=== PATIENT | female | born 1950 | race Caucasian/White ===

== ENCOUNTER → 2018-09-16 | Outpatient (CLI) | payer MEDICARE, BC ==
[~2018-09-16] MED LIST: ACET500 PO; ASPI325; ASPI325 PO; ASPI325EC PO; CLOP75; CODACE30 PO; Cleocin HCl300 MG PO; EZET10; GLYB5; HYDACE10B PO; HYDR1TAB94 PO; Humalog100 UNIT/1 SC; IBUP600 PO; INSDET100 SQ; INSLIS75I SC; INSUASPI SC; INVOKANA300 MG; ISOMON30; LISI20 PO; LOSA25; METF500 PO; METO50; METO50 PO; OMEP20ER PO; OXYACE5T PO; OXYC5 PO; Pepcid20 MG PO; SIMV10 PO; SIMV20 PO; ZESTORETIC 20-121 EA PO; ZOLP10 PO; [UNRECOGNIZED DRUG - OTHER] SC
[2018-09-16 15:18] LABS: Adenovirus F 40/41 Not Detected (NOT DETECT); Astrovirus Not Detected (NOT DETECT); Campylobacter Sp Not Detected (NOT DETECT); Cryptosporidium Not Detected (NOT DETECT); Cyclospora Cayetanensis Not Detected (NOT DETECT); E. Coli O157 Not Detected (NOT DETECT); Entamoeba Histolytica Not Detected (NOT DETECT); Enteroaggregative E. coli-EAEC Not Detected (NOT DETECT); Enteropathogenic E. coli-EPEC Not Detected (NOT DETECT); Enterotoxigenic E. coli-ETEC Not Detected (NOT DETECT); Giardia Lamblia Not Detected (NOT DETECT); Norovirus GI/GII Not Detected (NOT DETECT); Plesiomonas Shigelloides Not Detected (NOT DETECT); Rotavirus A Not Detected (NOT DETECT); Salmonella Sp Not Detected (NOT DETECT); Sapovirus Not Detected (NOT DETECT); Shiga Toxin-prod E. coli-STEC Not Detected (NOT DETECT); Shigella/Enteroin E. coli-EIEC Not Detected (NOT DETECT); Vibrio Cholerae Not Detected (NOT DETECT); Vibrio Sp Not Detected (NOT DETECT); Yersinia Enterocolitica Not Detected (NOT DETECT)
== END ==
LOC: LAB SHORT 13:24 → LAB EV 13:24
PROVIDERS: Physician Assistant
DX: R10.9 Unspecified abdominal pain (principal)
CPT/HCPCS: 87324; 87507

== ENCOUNTER 2019-09-18 08:47 | Day surgery (SDC) | payer MEDICARE, BC ==
[~2019-09-18] VITALS: Ht 167.6 cm; Wt 91.9 kg
[~2019-09-18 08:47] MED LIST changes: +ASPIR 8181 MG PO; +Humalog Mi100 UNIT/5 SC; +INSDET100 SC; +INVOKANA300 MG PO; +Lopressor 50 mg50 MG PO; +Metformin HCl1000 MG PO; +Nitroglycerin0.4 MG SL; +SIMV40 PO
--- NOTE | 2019-09-18 11:11 | NUR ---
09/18/19 Hellen Guillory PT. VERBALIZES HAVING SOME LLQ DISCOMFORT. PER DR. HONEYCUTT TELLING PT. THAT IT IS PROBABLY SOME AIR IN THE COLON THAT EVENTUALLY WILL BE ABSORB OR JUST NEEDS TO BE PASSED. PT. VERBALIZES LLQ DISCOMFORT TOLERABLE.
== END 2019-09-18 11:00 | disposition home or self-care (01) ==
LOC: ORSCSDS 08:47
PROVIDERS: Surgery
PROC: 0DJD8ZZ Inspection of Lower Intestinal Tract, Via Natural or Artificial Opening Endoscopic (ICD-10-PCS; principal; 2019-09-18 10:00)
DX: Z12.11 Encounter for screening for malignant neoplasm of colon (principal); Z86.010 Personal history of colon polyps; Z87.19 Personal history of other diseases of the digestive system; E11.9 Type 2 diabetes mellitus without complications; I10 Essential (primary) hypertension; G47.33 Obstructive sleep apnea (adult) (pediatric); E78.5 Hyperlipidemia, unspecified; I25.10 Atherosclerotic heart disease of native coronary artery without angina pectoris; E66.9 Obesity, unspecified; Z87.891 Personal history of nicotine dependence; Z68.32 Body mass index [BMI] 32.0-32.9, adult; Z79.82 Long term (current) use of aspirin; Z79.84 Long term (current) use of oral hypoglycemic drugs; Z79.4 Long term (current) use of insulin; Z79.899 Other long term (current) drug therapy
CPT/HCPCS: 82947; J2405; J2704; J7120

== ENCOUNTER → 2020-04-03 | Outpatient (CLI) | payer MEDICARE, BC ==
[2020-04-04 02:03] LABS: Adenovirus F 40/41 Not Detected (NOT DETECT); Astrovirus Not Detected (NOT DETECT); Campylobacter Sp Not Detected (NOT DETECT); Cryptosporidium Not Detected (NOT DETECT); Cyclospora Cayetanensis Not Detected (NOT DETECT); E. Coli O157 Not Detected (NOT DETECT); Entamoeba Histolytica Not Detected (NOT DETECT); Enteroaggregative E. coli-EAEC Not Detected (NOT DETECT); Enteropathogenic E. coli-EPEC Not Detected (NOT DETECT); Enterotoxigenic E. coli-ETEC Not Detected (NOT DETECT); Giardia Lamblia Not Detected (NOT DETECT); Norovirus GI/GII Not Detected (NOT DETECT); Plesiomonas Shigelloides Not Detected (NOT DETECT); Rotavirus A Not Detected (NOT DETECT); Salmonella Sp Not Detected (NOT DETECT); Sapovirus Not Detected (NOT DETECT); Shiga Toxin-prod E. coli-STEC Not Detected (NOT DETECT); Shigella/Enteroin E. coli-EIEC Not Detected (NOT DETECT); Vibrio Cholerae Not Detected (NOT DETECT); Vibrio Sp Not Detected (NOT DETECT); Yersinia Enterocolitica Not Detected (NOT DETECT)
== END | disposition home or self-care (01) ==
LOC: LAB SHORT 18:04 → LAB 18:04
PROVIDERS: Hospitalist
DX: R19.7 Diarrhea, unspecified (principal)
CPT/HCPCS: 0097U; 87324

== ENCOUNTER → 2020-04-16 | Outpatient (CLI) | payer MEDICARE, BC | END | disposition home or self-care (01) | LOC: LAB SHORT 10:45 → PLD 10:45 | DX: D04.39 Carcinoma in situ of skin of other parts of face (principal); C44.622 Squamous cell carcinoma of skin of right upper limb, including shoulder; L57.0 Actinic keratosis | CPT/HCPCS: 88305 ==

== ENCOUNTER → 2020-05-05 | Outpatient (CLI) | payer MEDICARE, BC | END | disposition home or self-care (01) | LOC: LAB SHORT 14:50 → PLD 14:50 | DX: C44.622 Squamous cell carcinoma of skin of right upper limb, including shoulder (principal); L81.4 Other melanin hyperpigmentation | CPT/HCPCS: 88305 ==

== ENCOUNTER 2020-05-26 18:35 | Emergency (ER) | payer MEDICARE, BC ==
[~2020-05-26] VITALS: Ht 167.6 cm; Wt 97.5 kg
[2020-05-26 19:45] LABS: BASOPHILS ABSOLUTE AUTO 0.03 K/mm3 (0.00-0.23); BASOPHILS PERCENT AUTO 0 % (0-2); EOSINOPHILS ABSOLUTE AUTO 0.01 K/mm3 (0.00-0.68); EOSINOPHILS PERCENT AUTO 0 % (0-6); Hemoglobin 16.4 g/dL (11.5-16.0); IMMATURE GRAN ABSOLUTE AUTO 0.07 K/mm3 (0.00-0.10); IMMATURE GRAN PERCENT AUTO 1 % (0-1); LYMPHOCYTES ABSOLUTE AUTO 1.26 K/mm3 (0.84-5.20); LYMPHOCYTES PERCENT AUTO 15 % (21-46); MONOCYTES PERCENT AUTO 2 % (4-13); Mean Corpuscular HGB 31.2 pg (26.0-34.0); Mean Corpuscular HGB Conc 34.9 g/dL (31.5-36.5); Mean Corpuscular Volume 90 fL (80-100); Mean Platelet Volume 10.1 fL (9.1-12.4); NEUTROPHILS ABSOLUTE AUTO 7.02 K/mm3 (1.96-9.15); NEUTROPHILS PERCENT AUTO 82 % (41-73); Platelet Count 249 K/mm3 (150-400); RDW Coefficient Variation 11.9 % (11.7-14.2); RDW Standard Deviation 39.2 fL (35.1-46.3); Red Blood Cell Count 5.25 M/mm3 (3.80-5.20); White Blood Cell Count 8.59 K/mm3 (4.00-11.30)
[2020-05-26 20:06] LABS: Alanine Aminotransfer (ALT/SGP 55 U/L (12-78); Albumin, Blood 4.4 g/dL (3.4-5.0); Alk Phos 67 U/L (50-136); Anion Gap 11 mmol/L (6-16); Aspartate Aminotrans (AST/SGOT 29 U/L (12-37); Bilirubin, Total 1.2 mg/dL (0.1-1.0); Blood Urea Nitrogen 22 mg/dL (8-24); Bun/Creatinine Ratio 40.4 (12.0-20.0); CO2, Blood 23 mmol/L (21-32); Chloride, Blood 103 mmol/L (98-108); Creatinine, Blood 0.55 mg/dL (0.40-1.00); Globulin, Blood 4.2 g/dL (2.2-4.0); Glomerular Filtration Rate >60 (60-); Glucose, Blood 226 mg/dL (70-99); Potassium, Blood 4.1 mmol/L (3.5-5.5); Sodium, Blood 137 mmol/L (136-145); Total Protein, Blood 8.6 g/dL (6.4-8.2)
== END 2020-05-26 23:58 | disposition home or self-care (01) ==
LOC: ER 18:35
PROVIDERS: Physician Assistant
DX: R51.9 Headache, unspecified (principal); R11.2 Nausea with vomiting, unspecified; H53.71 Glare sensitivity; E11.9 Type 2 diabetes mellitus without complications; I25.10 Atherosclerotic heart disease of native coronary artery without angina pectoris; I10 Essential (primary) hypertension; E78.5 Hyperlipidemia, unspecified; Z87.891 Personal history of nicotine dependence; Z79.4 Long term (current) use of insulin; Z79.82 Long term (current) use of aspirin; Z79.899 Other long term (current) drug therapy; Z91.030 Bee allergy status; Z88.2 Allergy status to sulfonamides; Z88.8 Allergy status to other drugs, medicaments and biological substances
CPT/HCPCS: 36415; 70450; 70496; 70498; 80053; 85025; 96374-59; 96375-59; 99284-25; J1100; J1170; J1200; J2405; J2550; J7030; Q9967

== ENCOUNTER → 2020-10-15 | Outpatient (CLI) | payer MEDICARE, BC | END | disposition home or self-care (01) | LOC: LAB SHORT 12:37 → PLD 12:37 | DX: D18.01 Hemangioma of skin and subcutaneous tissue (principal) | CPT/HCPCS: 88305 ==

== ENCOUNTER → 2020-12-31 | Outpatient (CLI) | payer MEDICARE, BC | END | disposition home or self-care (01) | LOC: LAB SHORT 13:12 → LAB 13:12 | DX: R53.83 Other fatigue (principal) | CPT/HCPCS: 84443 ==

== ENCOUNTER → 2021-04-26 | Outpatient (CLI) | payer MEDICARE, BC ==
[2021-04-26 11:46] LABS: Hematocrit 40.8 % (33.0-51.0); Hemoglobin 14.4 g/dL (11.5-16.0); Mean Corpuscular HGB 31.2 pg (26.0-34.0); Mean Corpuscular HGB Conc 35.3 g/dL (31.5-36.5); Mean Corpuscular Volume 88 fL (80-100); Mean Platelet Volume 9.9 fL (9.1-12.4); Platelet Count 204 K/mm3 (150-400); RDW Coefficient Variation 12.2 % (11.7-14.2); RDW Standard Deviation 39.5 fL (35.1-46.3); Red Blood Cell Count 4.62 M/mm3 (3.80-5.20); White Blood Cell Count 5.28 K/mm3 (4.00-11.30)
[2021-04-26 12:00] LABS: Albumin, Blood 3.5 g/dL (3.4-5.0); Albumin/Globulin Ratio 0.8 (0.8-1.8); Bilirubin, Total 0.5 mg/dL (0.1-1.0); Bun/Creatinine Ratio 24.8 (12.0-20.0); Calcium, Blood 8.9 mg/dL (8.5-10.1); Creatinine, Blood 1.25 mg/dL (0.40-1.00); Globulin, Blood 4.3 g/dL (2.2-4.0); Potassium, Blood 3.6 mmol/L (3.5-5.5); Total Protein, Blood 7.8 g/dL (6.4-8.2)
[2021-04-26 12:03] LABS: BAND PERCENT MAN 5 % (0-8); BASOPHILS ABSOLUTE MAN 0.05 K/mm3 (0.00-0.23); BASOPHILS PERCENT MAN 1 % (0-2); EOSINOPHILS ABSOLUTE MAN 0.15 K/mm3 (0.00-0.68); EOSINOPHILS PERCENT MAN 3 % (0-6); LYMPHOCYTES % ATYPICAL MANUAL 11 % (0-0); LYMPHOCYTES ABSOLUTE MAN 2.69 K/mm3 (0.84-5.20); LYMPHOCYTES PERCENT MAN 40 % (21-46); MONOCYTES ABSOLUTE MAN 0.52 K/mm3 (0.16-1.47); MONOCYTES PERCENT MAN 10 % (4-13); NEUTROPHILS ABSOLUTE MAN 1.84 K/mm3 (1.96-9.15); SEG NEUTROPHILS PERCENT MAN 30 % (41-73); TOTAL CELLS COUNTED 100
== END | disposition home or self-care (01) ==
LOC: LAB SHORT 11:42
PROVIDERS: General Practice
DX: U07.1 COVID-19 (principal)
CPT/HCPCS: 80053; 85025; 85379

== ENCOUNTER → 2021-07-07 | Outpatient (CLI) | payer MEDICARE, BC | END | disposition home or self-care (01) | LOC: LAB 11:11 → LAB SHORT 11:11 | DX: E11.65 Type 2 diabetes mellitus with hyperglycemia (principal) | CPT/HCPCS: 82043 ==

== ENCOUNTER 2021-08-18 07:01 | Day surgery (SDC) | payer MEDICARE, BC ==
[~2021-08-18] VITALS: Ht 162.6 cm; Wt 95.7 kg
[~2021-08-18 07:01] MED LIST changes: +HUMALOG MI100 UNIT/6 SC
[2021-08-18] MEDS ORDERED: NOVOLIN 70100 UNIT/4 SC ×2 (07:30→07:31)
--- NOTE | 2021-08-18 07:49 | NUR ---
History, Chart, Medications and Allergies reviewed before start of procedure. Lungs clear T/O to Auscultation. Patient confirms NPO status and agrees with scheduled surgery. Pre-Op teaching done. Pt verbalizes understanding. Patient States Post-Procedure ride home has been arranged.
--- NOTE | 2021-08-18 08:25 | NUR ---
08/18/21 0825 Misa Linares MONITOR INTACT WITH CONTINUOUS PULSE OXIMETRY AND INTERMITTENT BP.
--- NOTE | 2021-08-18 09:16 | NUR ---
Patient up to Ambulate independently. Gait steady. Discharge instructions reviewed with patient. Patient verbalizes understanding. Copy given to patient to take home. Discharged via wheelchair to private car for ride home.
== END 2021-08-18 23:14 | disposition home or self-care (01) ==
LOC: ORSCMMR 07:01 → ORD 08:00 → ORSCMMR 08:00
PROVIDERS: Internal Medicine Gastroenterology
PROC: 0DB98ZX Excision of Duodenum, Via Natural or Artificial Opening Endoscopic, Diagnostic (ICD-10-PCS; principal; 2021-08-18 08:00)
PROC: 0DB68ZX Excision of Stomach, Via Natural or Artificial Opening Endoscopic, Diagnostic (ICD-10-PCS; principal; 2021-08-18 08:00)
DX: R19.7 Diarrhea, unspecified (principal); R10.9 Unspecified abdominal pain; K44.9 Diaphragmatic hernia without obstruction or gangrene; E11.9 Type 2 diabetes mellitus without complications; I10 Essential (primary) hypertension; E78.5 Hyperlipidemia, unspecified; I25.10 Atherosclerotic heart disease of native coronary artery without angina pectoris; G47.33 Obstructive sleep apnea (adult) (pediatric); E66.9 Obesity, unspecified; Z68.36 Body mass index [BMI] 36.0-36.9, adult; Z79.82 Long term (current) use of aspirin; Z79.4 Long term (current) use of insulin; Z79.899 Other long term (current) drug therapy
CPT/HCPCS: 82947; 88305; 88342; J2001; J2704; J7120

== ENCOUNTER 2022-07-04 18:57 | Inpatient (IN) | payer MEDICARE, BC ==
[~2022-07-04] VITALS: Ht 170.2 cm; Wt 89.2 kg
[~2022-07-04 18:57] MED LIST changes: +NOVOLIN 70100 UNIT/4 SC
[2022-07-04 19:58] LABS: BASOPHILS ABSOLUTE AUTO 0.07 K/mm3 (0.00-0.23); BASOPHILS PERCENT AUTO 1 % (0-2); RDW Standard Deviation 39.1 fL (35.1-46.3)
[2022-07-04 20:06] LABS: EOSINOPHILS PERCENT AUTO 1 % (0-6); Hematocrit 43.5 % (33.0-51.0); Hemoglobin 15.7 g/dL (11.5-16.0); IMMATURE GRAN ABSOLUTE AUTO 0.06 K/mm3 (0.00-0.10); IMMATURE GRAN PERCENT AUTO 1 % (0-1); LYMPHOCYTES PERCENT AUTO 21 % (21-46); MONOCYTES ABSOLUTE AUTO 0.37 K/mm3 (0.16-1.47); MONOCYTES PERCENT AUTO 4 % (4-13); Mean Corpuscular HGB Conc 36.1 g/dL (31.5-36.5); Mean Corpuscular Volume 86 fL (80-100); NEUTROPHILS ABSOLUTE AUTO 6.47 K/mm3 (1.96-9.15); NEUTROPHILS PERCENT AUTO 72 % (41-73); RDW Coefficient Variation 12.4 % (11.7-14.2); Red Blood Cell Count 5.06 M/mm3 (3.80-5.20); White Blood Cell Count 8.97 K/mm3 (4.00-11.30)
[2022-07-04 20:07] LABS: Mean Platelet Volume 10.3 fL (9.1-12.4); Platelet Count 251 K/mm3 (150-400)
[2022-07-04 20:20] LABS: Albumin, Blood 4.2 g/dL (3.4-5.0); Albumin/Globulin Ratio 1.1 (0.8-1.8); Bilirubin, Total 1.1 mg/dL (0.1-1.0); Bun/Creatinine Ratio 34.3 (12.0-20.0); Calcium, Blood 9.9 mg/dL (8.5-10.1); Creatinine, Blood 0.58 mg/dL (0.40-1.00); Globulin, Blood 3.7 g/dL (2.2-4.0); Total Protein, Blood 7.9 g/dL (6.4-8.2)
[2022-07-04 20:40] LABS: Source, Urine Clean Catch
[2022-07-04 20:41] LABS: Influenza A, PCR NEGATIVE (NEGATIVE); Influenza B, PCR NEGATIVE (NEGATIVE); Resp Syncytial Virus, PCR NEGATIVE (NEGATIVE); SARS-Cov-2 (COVID-19) PCR, MMC NEGATIVE (NEGATIVE)
[2022-07-04 20:43] LABS: Bilirubin, Urine Neg (Neg); Blood, Urine Neg (Neg); Glucose Qualitative, Urine 4+ (Neg); Ketones, Urine 3+ (Neg); Leukocyte Esterase, Urine Neg (Neg); Nitrite, Urine Pos (Neg); Protein, Urine 2+ (Neg); Urobilinogen, Urine NORM (Normal)
[2022-07-04 20:48] LABS: Appearance, Urine Hazy (Clear); Color, Urine Pale Yellow (P-Yellow)
[2022-07-04 20:50] LABS: Bacteria Many /hpf; Renal Epithelial Rare /hpf (0-Rare); Squamous Epithelial Cells Mod /hpf (Few)
[2022-07-04 20:51] LABS: Transitional Epithelial Cells Rare /hpf (0-Rare); Yeast/Fungi Urine Rare /hpf
[2022-07-04 20:56] LABS: International Normalized Ratio 1.02; Prothrombin Time Results 10.7 Sec (9.7-11.5)
[2022-07-04 21:31] LABS: U Amphetamine Screen Not Detected; U Barbituate Screen Not Detected; U Benzodiazapine Screen Not Detected; U Buprenorphine Screen Not Detected; U Cannabinoids Screen Not Detected; U Cocaine Screen Not Detected; U Methadone Screen Not Detected; U Methamphetamine Screen Not Detected; U Opiates Screen Not Detected; U Oxycodone Screen Not Detected; U Phencyclidine Screen Not Detected; U Propoxyphene Screen Not Detected
[2022-07-05] MEDS ORDERED: Oxybutynin Chlor5 M1 PO (10:20)
[2022-07-05] MEDS ORDERED: PEPCID40 MG PO (10:20)
[2022-07-05 14:15] LABS: WBC Count, CSF 2 /mm3 (0-5)
[2022-07-05 14:16] LABS: Appearance, CSF Clear (Clear); Color, CSF No Color (No Color); RBC Count, CSF 18 /mm3 (0-0)
[2022-07-05 14:21] LABS: Appearance, CSF Clear (Clear); Color, CSF No Color (No Color); WBC Count, CSF 1 /mm3 (0-5)
[2022-07-05 14:22] LABS: RBC Count, CSF 28 /mm3 (0-0)
[2022-07-05 14:37] LABS: Glucose, CSF 161 mg/dL (40-70)
[2022-07-05 15:20] LABS: Cryptococcus Neoformans/Gattii Not Detected (NOT DETECT); Enterovirus Not Detected (NOT DETECT); Escherichia Coli K1 Not Detected (NOT DETECT); Haemophilus Influenza Not Detected (NOT DETECT); Herpes Simplex Virus 1 Not Detected (NOT DETECT); Herpes Simplex Virus 2 Not Detected (NOT DETECT); Human Herpesvirus 6 Not Detected (NOT DETECT); Human Parechovirus Not Detected (NOT DETECT); Listeria Monocytogenes Not Detected (NOT DETECT); Neisseria Meningitidis Not Detected (NOT DETECT); Streptococcus Agalactiae Not Detected (NOT DETECT); Streptococcus Pneumoniae Not Detected (NOT DETECT); Varicella Zoster Virus Not Detected (NOT DETECT)
[2022-07-05] MEDS ORDERED: FARXIGA10 MG PO (15:42)
[2022-07-05] MEDS ORDERED: Isosorbide Mono30 MG PO (15:43)
[2022-07-05 17:24] LABS: BASOPHILS ABSOLUTE AUTO 0.03 K/mm3 (0.00-0.23); BASOPHILS PERCENT AUTO 0 % (0-2); EOSINOPHILS PERCENT AUTO 0 % (0-6); Hematocrit 46.2 % (33.0-51.0); Hemoglobin 16.1 g/dL (11.5-16.0); IMMATURE GRAN ABSOLUTE AUTO 0.08 K/mm3 (0.00-0.10); IMMATURE GRAN PERCENT AUTO 1 % (0-1); LYMPHOCYTES ABSOLUTE AUTO 1.85 K/mm3 (0.84-5.20); LYMPHOCYTES PERCENT AUTO 15 % (21-46); MONOCYTES ABSOLUTE AUTO 0.77 K/mm3 (0.16-1.47); MONOCYTES PERCENT AUTO 6 % (4-13); Mean Corpuscular HGB Conc 34.8 g/dL (31.5-36.5); Mean Corpuscular Volume 89 fL (80-100); NEUTROPHILS ABSOLUTE AUTO 9.39 K/mm3 (1.96-9.15); NEUTROPHILS PERCENT AUTO 77 % (41-73); Platelet Count 247 K/mm3 (150-400); RDW Coefficient Variation 12.6 % (11.7-14.2); RDW Standard Deviation 41.1 fL (35.1-46.3); Red Blood Cell Count 5.19 M/mm3 (3.80-5.20); White Blood Cell Count 12.12 K/mm3 (4.00-11.30)
[2022-07-05 17:33] LABS: Albumin, Blood 4.2 g/dL (3.4-5.0); Bilirubin, Total 1.3 mg/dL (0.1-1.0); Bun/Creatinine Ratio 31.2 (12.0-20.0); Calcium, Blood 9.6 mg/dL (8.5-10.1); Creatinine, Blood 0.67 mg/dL (0.40-1.00); Total Protein, Blood 8.2 g/dL (6.4-8.2)
--- NOTE | 2022-07-05 18:44 | NUR ---
SHIFT SUMMARY/ADMISSION NOTE PT ARRIVED TO MEDICAL FLOOR FROM THE ED AT APPROX 1525. PT IS AxOx0. PT IS LETHARGIC AND DROWSY. PT IS NOT RESPONDING VERBALLY TO QUESTIONS. PT IS ACCOMPANIED BY HER , RAUL, AND DAUGHTER, BARRY. MEDS RECONCILED AND HEALTH HISTORY OBTAINED FROM FAMILY. PT IS CURRENTLY NPO FOR DROWSINESS AND ONLY RECIEVING IV MEDICATIONS. PT IS ON TELE, RUNNING SINUS TACH AT 113 WHEN CHECKED. PT HAD MRI, CT OF HEAD, AND LUMBAR PUNCTURE TODAY. PT IS CURRENTLY RESTING IN BED WITH CALL LIGHT IN REACH. FAMILY EXPLAINED HOW TO USE CALL LIGHT AND/RAPID RESPONSE IF NEEDED. PT HAS HAD SOME RESTLESS AND THRASHING BEHAVIOR WHEN STAFF TRIES TO IMPLEMENT CARE. FAMILY DOES SEEM TO CALM HER. FAMILY DENIES ANY FURTHER NEEDS AT THIS TIME.
--- NOTE | 2022-07-06 07:46 | NUR ---
PT ALERT X O- PT RESPONDS TO PAINFUL STIMULI AT TIMES- PT FEBRILE- MEDICATED WITH TYLENOL SUPP AND FLUIDS- PT CONTINUED TO FEBRILE BUT DECREASED PT UNABLE TO FOLLOW DIRECTION- PT THRASHES SIDE TO SIDE IN BED- PT APPEARED TO BE PAINFUL AND AGITATED T/O NIGHT - MEDICATED PER D.O.- SEE MAR- TAYLOR CLEAR YELLOW URINE- CATH CARE DONE AT THE BEGINNING AND END OF SHIFT- ORAL CARE DONE T/O NIGHT IV LEFT AC- SPLINT IN PLACE- INFUSING ANTIBIOTICS, ANTIVIRAL AND FLUIDS T/O NIGHT WITH NO S/S INFILTRATION OR REDNESS- RAUL AT BEDSIDE- BED LOW POSITION, CALL LIGHT WITHIN REACH, BED ALARM IN PLACE
[2022-07-06 14:13] LABS: Hematocrit 46.7 % (33.0-51.0); Mean Corpuscular HGB 31.2 pg (26.0-34.0); Mean Corpuscular HGB Conc 34.3 g/dL (31.5-36.5); Mean Corpuscular Volume 91 fL (80-100); Mean Platelet Volume 10.5 fL (9.1-12.4); Platelet Count 225 K/mm3 (150-400); RDW Coefficient Variation 12.7 % (11.7-14.2); RDW Standard Deviation 41.9 fL (35.1-46.3); Red Blood Cell Count 5.13 M/mm3 (3.80-5.20); White Blood Cell Count 13.33 K/mm3 (4.00-11.30)
[2022-07-06 14:34] LABS: Bun/Creatinine Ratio 32.4 (12.0-20.0); Calcium, Blood 8.9 mg/dL (8.5-10.1); Creatinine, Blood 0.77 mg/dL (0.40-1.00); Potassium, Blood 4.1 mmol/L (3.5-5.5)
--- NOTE | 2022-07-06 16:50 | NUR ---
SHIFT SUMMARY- PT AGITATED WITH TOUCH AND MOVEMENT IN AM. MEDICATION GIVEN TO REDUCE SELF HARM. FAMILY AT BEDSIDE. ON RA. TELE SINUS TACH. POWER GLIDE INSERTED FOR USE. SACRAL AREA SKIN INTACT, NO BREAKDOWN NOTED THIS SHIFT. REPOSTIONED Q2. TAYLOR DRAINING CLEAR YELLOW, OUTPUT NOTED IN EMAR. PT OPENED EYE FOR FAMILY FOR ABOUT 10 SECONDS AROUND 1500. WILL CONTINUE TO MONITOR. CALL LIGHT IN REACH SIDE RAILS UP X3
--- NOTE | 2022-07-06 20:38 | NUR ---
HOSPITALIST NOTIFIED OF CBG 410. DIRECTED TO GIVE 3 ADDITIONAL UNITS OF HUMALOG FOR TOTAL OF 8 UNITS. DIRECTED TO RECHECK CBG IN 2HR.
--- NOTE | 2022-07-06 23:21 | NUR ---
[facility] NOTED INFORMED CHARGE OF E[facility]ATED [facility]. NO NOTE OR MENTION FOUND TO INDICATE IF HOSPITALIST WAS MADE AWARE OF THIS. I WILL PASS THIS INFORMATION ON TO DAY RN TO ENSURE THAT THE PHYSICIAN IS AWARE.
[2022-07-07 01:12] LABS: BASOPHILS ABSOLUTE AUTO 0.02 K/mm3 (0.00-0.23); BASOPHILS PERCENT AUTO 0 % (0-2); EOSINOPHILS PERCENT AUTO 0 % (0-6); Hemoglobin 15.3 g/dL (11.5-16.0); IMMATURE GRAN ABSOLUTE AUTO 0.08 K/mm3 (0.00-0.10); IMMATURE GRAN PERCENT AUTO 1 % (0-1); LYMPHOCYTES ABSOLUTE AUTO 1.44 K/mm3 (0.84-5.20); LYMPHOCYTES PERCENT AUTO 13 % (21-46); MONOCYTES PERCENT AUTO 4 % (4-13); Mean Corpuscular Volume 91 fL (80-100); Mean Platelet Volume 10.3 fL (9.1-12.4); NEUTROPHILS ABSOLUTE AUTO 9.22 K/mm3 (1.96-9.15); NEUTROPHILS PERCENT AUTO 83 % (41-73); Platelet Count 195 K/mm3 (150-400); RDW Coefficient Variation 12.8 % (11.7-14.2); RDW Standard Deviation 42.9 fL (35.1-46.3); Red Blood Cell Count 4.93 M/mm3 (3.80-5.20); White Blood Cell Count 11.16 K/mm3 (4.00-11.30)
[2022-07-07 01:32] LABS: Vancomycin, Trough 13.1 ug/mL (5.0-10.0)
[2022-07-07 01:39] LABS: Albumin, Blood 3.4 g/dL (3.4-5.0); Albumin/Globulin Ratio 0.9 (0.8-1.8); Bilirubin, Total 0.8 mg/dL (0.1-1.0); Bun/Creatinine Ratio 42.9 (12.0-20.0); Calcium, Blood 9.1 mg/dL (8.5-10.1); Creatinine, Blood 0.79 mg/dL (0.40-1.00); Globulin, Blood 3.6 g/dL (2.2-4.0); Potassium, Blood 4.2 mmol/L (3.5-5.5)
--- NOTE | 2022-07-07 01:50 | NUR ---
HOSPITALIST NOTIFIED OF CBG OF 395. NEW ORDER FOR 10 UNITS LANTUS NOW AND 20 UNITS LANTUS BID BEGINNING 07/07/22 INITIATED.
--- NOTE | 2022-07-07 03:37 | NUR ---
PT STATUS CHANGE PT HAS AWAKENED. SHE IS RESPONSIVE, SPEAKING IN SENTENCES, ASKING AND ANSWERING QUESTIONS. SHE REQUESTS A DIET DR. AMADOR. SHE STATES SHE NEEDS A FAN BECAUSE SHE IS HOT.
--- NOTE | 2022-07-07 05:13 | NUR ---
BEDSIDE NURSE SWALLOW EVALUATION PERFORMED. PT PASSED. WILL PASS ON TO DAY SHIFT NURSE.
--- NOTE | 2022-07-07 05:14 | NUR ---
SHIFT SUMMARY NOC PT OBTUNDED FOR MOST OF SHIFT. PT HAD CBG OF 410 AND 395 HOSPITALIST NOTIFIED AND INSULIN COVERAGE PROVIDED. PT IS NOW GETTING 20 UNITS OF LONG ACTING BID. AT AROUND 0415 PT WOKE UP AND ASKED QUESTIONS AND A/O X 3. PT HAD BEDSIDE SWALLOW EVAL PERFORMED AND PASSED. PT SPOUSE AND DAUGHTER ARE CURRENTLY AT BEDSIDE. PT IS SITTING UP IN BED WITH BED IN LOWEST POSITION, SODIUM BICARB INFUSING, AND CALL LIGHT WITHIN REACH.
--- NOTE | 2022-07-07 14:21 | NUR ---
ATTEMPT TO CALL N/A. PT VOMITING BLACK COFFEE GROUND BILE X2. GAVE MEDICATION PER EMAR. WILL CONTINUE TO MONITOR.
--- NOTE | 2022-07-07 14:25 | NUR ---
SPOKE WITH DR REGARDING N/V, WILL TREAT ORDERED.
[2022-07-07 16:19] LABS: Hematocrit 44.7 % (33.0-51.0); Hemoglobin 15.7 g/dL (11.5-16.0)
--- NOTE | 2022-07-07 17:48 | NUR ---
SHIFT SUMMARY- PT PROGRESSIVELY IMPROVING MENTATION AND SPEACH THROUGHOUT SHIFT. PT ABLE TO COMUNICATE NEEDS WITH WORDS TO SENTENCES NOW. SPEACH IS STILL SLURRED. PT VOMITED UP SMALL AMOUNTS OF DARK LIQUID AROUND 1400, THEN AFTER SP EVAL VOMITED COFFEE GROUND LIQUID X 3. TREATED PER EMAR. NOTIFIED ON RA. PT RUNNING NA/BICARB @75. POWERGLIDE PATENT. CLAUDIA REMOVED PER ORDER. ATTENDS IN PLACE. FAMILY AT BEDSIDE. PT ABLE TO TRACK AND NAME FAMILY MEMBERS IN ROOM. WILL CONITUE TO MONITOR. CALL LIGHT IN REACH, BED RAILS UP, AND BED ALARM ON FOR SAFETY.
--- NOTE | 2022-07-08 00:52 | NUR ---
CALLED HOSPITALIST PT'S GLUCOSE IS ELEVATED ABOVE 350 AGAIN, NEW ORDERS IN EMAR. PT IS ALSO AGITATED AND YELLING OUT. FAMILY IS REQUESTING MEDICATIION TO CALM HER. NEW ORDERS IN EMAR
--- NOTE | 2022-07-08 02:52 | NUR ---
PT STATUS PT HAS FALLEN ASLEEP. NO LONGER YELLING OUT. PT'S FAMILY IN ROOM PREFER ME TO WAIT TO MEDICATE THE PT FOR AGITATION AT THIS TIME
--- NOTE | 2022-07-08 04:17 | NUR ---
SHIFT SUMMARY ADMITTED FOR UTI/ENCEPHALOPATHY. FULL CODE. ANTIB RX AND STEROIDS ARE SCHEDULED. Q6 CBG'S - LOW SS. HUMALOG GIVEN THIS SHIFT, BID LANTUS DOSE INCREASED THIS SHIFT. ANXIETY MEDICATION GIVEN THIS SHIFT. SHE IS CONFUSED, BUT RESPONSIVE. SHE FLAILS HER ARMS ABOUT, AND YELLS OUT. SHE TRIES TO REMOVE LINES AND TUBES. SHE DOES RECOGNIZE FAMILY AND FRIENDS. PHYSICAL/OT/ST ORDERED. POSSIBLE COFFEE GROUND EMESIS REPORTED ON PREVIOUS SHIFT. NONE REPORTED THIS SHIFT. FAMILY IS AT BEDSIDE. SHE IS INCONTINENT. POWERGLIDE IN LUE.
[2022-07-08 10:39] LABS: BASOPHILS ABSOLUTE AUTO 0.03 K/mm3 (0.00-0.23); BASOPHILS PERCENT AUTO 0 % (0-2); EOSINOPHILS PERCENT AUTO 0 % (0-6); Hematocrit 51.8 % (33.0-51.0); Hemoglobin 17.2 g/dL (11.5-16.0); IMMATURE GRAN ABSOLUTE AUTO 0.09 K/mm3 (0.00-0.10); IMMATURE GRAN PERCENT AUTO 1 % (0-1); LYMPHOCYTES ABSOLUTE AUTO 1.16 K/mm3 (0.84-5.20); LYMPHOCYTES PERCENT AUTO 10 % (21-46); MONOCYTES ABSOLUTE AUTO 0.72 K/mm3 (0.16-1.47); MONOCYTES PERCENT AUTO 6 % (4-13); Mean Corpuscular HGB 31.3 pg (26.0-34.0); Mean Corpuscular HGB Conc 33.2 g/dL (31.5-36.5); Mean Corpuscular Volume 94 fL (80-100); Mean Platelet Volume 10.9 fL (9.1-12.4); NEUTROPHILS ABSOLUTE AUTO 9.94 K/mm3 (1.96-9.15); NEUTROPHILS PERCENT AUTO 83 % (41-73); Platelet Count 178 K/mm3 (150-400); RDW Coefficient Variation 13.1 % (11.7-14.2); RDW Standard Deviation 45.1 fL (35.1-46.3); White Blood Cell Count 11.94 K/mm3 (4.00-11.30)
[2022-07-08 11:11] LABS: Albumin, Blood 3.8 g/dL (3.4-5.0); Bilirubin, Total 0.9 mg/dL (0.1-1.0); Bun/Creatinine Ratio 56.7 (12.0-20.0); Calcium, Blood 9.5 mg/dL (8.5-10.1); Creatinine, Blood 0.69 mg/dL (0.40-1.00); Globulin, Blood 3.9 g/dL (2.2-4.0); Potassium, Blood 3.7 mmol/L (3.5-5.5); Total Protein, Blood 7.7 g/dL (6.4-8.2)
--- NOTE | 2022-07-08 11:13 | NUR ---
MULTIPLE FAMILY MEMBERS IN THIS AM, FAMILY EDUCATED ON VISITNG HOURS AND AMOUNT OF VISITORS IN THE ROOM, THEY SAID "WE WILL TAKE IT INTO CONSIDERATION, WE HAVE BEEN HERE SINCE TUESDAY AND NO ONE ELSE HAS TOULD US ONLY TWO VISITORS AT A TIME, REPORTSED TO NURSING DUPLEX TRIMMER
[2022-07-08 17:34] LABS: Bun/Creatinine Ratio 57.4 (12.0-20.0); Calcium, Blood 8.6 mg/dL (8.5-10.1); Creatinine, Blood 0.68 mg/dL (0.40-1.00); Magnesium, Blood 2.5 mg/dL (1.6-2.4); Phosphorus, Blood 2.4 mg/dL (2.5-4.9); Potassium, Blood 3.6 mmol/L (3.5-5.5)
--- NOTE | 2022-07-08 18:32 | NUR ---
PATIENTS SPACISITY AND CONFUSION INCREASED, ABLE TO MAKE CLEAR WORDS, NONDIRECTABLE, AND NONCONSOLABLE AT TIMES, PG X2, BS Q2H, BOLUS, IVF, AND ACYCLOVIR STARTED. VSS. MULTIPLE CONVERSATIONS WITH FAMILY AND NURTSING FACILITIES MANAGER. PATIENT AND FAMILY DEFENSIVE TO ANY HEALTH CARE EDUCATION. PATIENT MADE NPO FOR ASPIRATION AND EMESIS, INCREASED BELCHING. MEDICATED WITH HALDOL X1, PATIENT SLEEPING NOW, NO S/S OF DISTRESS, AT BEDSIDE VERY [place], HAS SELECTIVE HEARING. TO STAY THE NIGHT, DAUGHTER OR GRANDAUGHTER TO BE NOTIFIED IF NEEDED THROUGH THE NIGHT. INCONTINENT THROUGHOUT THE DAY, ATTENDS DRY AND INTACT NOW. PT/OT/ST WORKED WITH PATIENT, REPORTED TO NURSING FACILITIES MANAGER POSSIBLE TRANSFER TO PCU OR ICU FOR BS Q2HR, CALL LIGHT WITH IN REACH, WILL RELAY TO PM RN
[2022-07-08 22:52] LABS: Albumin, Blood 2.9 g/dL (3.4-5.0); Bilirubin, Total 0.6 mg/dL (0.1-1.0); Bun/Creatinine Ratio 60.7 (12.0-20.0); Calcium, Blood 8.3 mg/dL (8.5-10.1); Creatinine, Blood 0.58 mg/dL (0.40-1.00); Globulin, Blood 2.9 g/dL (2.2-4.0); Potassium, Blood 3.7 mmol/L (3.5-5.5); Total Protein, Blood 5.8 g/dL (6.4-8.2)
--- NOTE | 2022-07-09 03:39 | NUR ---
SHIFT SUMMARY BG DOWN TO THE 200'S, CHEM STICKS CHANGED TO Q6. AND FRIEND STAYED OVERNGIHT, EDUCATED ON PT DIET. NOTHING TO EAT OR DRINK, FAMILY UNDERSTANDS AND HAS BEEN COMPLIANT. PT DENIES ANY NAUSEA. PT DENIES ANY PAIN/SOB/ ANY S/S OF DISTRESS JUST WANTING TO EAT AND GO HOME. HALDOL GIVEN ON DAY SHIFT, PT SLEPT FROM SHIFT START TO AROUND 2200. PER FAMILY, PT MORE INTERACTIVE AND CALM. NOT THROWING EXTREMITIES AROUND MUCH PREVIOUSLY. PT ORIENTED TO SELF AND PLACE. IV FLUIDS CONTINUES, ABX CONTINUES. PT INCONTINENT OF URINE. SBP ELEVATED TO 163, PT NPO FOR PILLS. ADMINISTERED PRN HYDRALYZINE. FAMILY IN ROOM TO HELP WITH PATIENT NEEDS, WILL CALL APPROPERIATLY.
[2022-07-09 06:37] LABS: BASOPHILS ABSOLUTE AUTO 0.01 K/mm3 (0.00-0.23); BASOPHILS PERCENT AUTO 0 % (0-2); EOSINOPHILS PERCENT AUTO 0 % (0-6); Hematocrit 42.4 % (33.0-51.0); Hemoglobin 14.8 g/dL (11.5-16.0); IMMATURE GRAN ABSOLUTE AUTO 0.08 K/mm3 (0.00-0.10); IMMATURE GRAN PERCENT AUTO 1 % (0-1); LYMPHOCYTES ABSOLUTE AUTO 1.98 K/mm3 (0.84-5.20); LYMPHOCYTES PERCENT AUTO 18 % (21-46); MONOCYTES ABSOLUTE AUTO 0.86 K/mm3 (0.16-1.47); MONOCYTES PERCENT AUTO 8 % (4-13); Mean Corpuscular HGB 31.2 pg (26.0-34.0); Mean Corpuscular HGB Conc 34.9 g/dL (31.5-36.5); Mean Platelet Volume 10.3 fL (9.1-12.4); NEUTROPHILS ABSOLUTE AUTO 7.94 K/mm3 (1.96-9.15); NEUTROPHILS PERCENT AUTO 73 % (41-73); Platelet Count 165 K/mm3 (150-400); RDW Coefficient Variation 12.6 % (11.7-14.2); RDW Standard Deviation 41.8 fL (35.1-46.3); Red Blood Cell Count 4.75 M/mm3 (3.80-5.20); White Blood Cell Count 10.87 K/mm3 (4.00-11.30)
[2022-07-09 06:38] LABS: Mean Corpuscular Volume 89 fL (80-100)
[2022-07-09 07:47] LABS: Bun/Creatinine Ratio 46.4 (12.0-20.0); Calcium, Blood 8.6 mg/dL (8.5-10.1); Creatinine, Blood 0.56 mg/dL (0.40-1.00); Potassium, Blood 3.4 mmol/L (3.5-5.5)
--- NOTE | 2022-07-09 11:59 | NUR ---
PT ON THE FLOOR DAUGHTER CAME OUT OF THE ROOM SAYING HER MOM, THE PT, WAS ON THE FLOOR. WENT IN WITH ASSISTANCE OF STAFF. A LIFT WAS EMPLOYED TO PICK HER UP OFF THE FLOOR AND GET HER BACK TO BED. VS DONE AND STABLE. PT DENIES HITTING HER HEAD, NO INJURIES NOTED, PT DENIES HURTING HERSELF. DAUGHTER REQUESTS PT ADVOCATE PH# WHICH WAS PROVIDED TO HER. DAUGHTER IS ALSO REQUESTING A HEAD CT NOW & ANOTHER ONE IN 24 HRS. PLACED CALL TO TO NOTIFY OF ALL OF THE ABOVE. MD STATES SHE WILL COME SPEAK TO PT AND FAMILY.
--- NOTE | 2022-07-09 17:22 | NUR ---
DC HOME SPEECH, OCC & PHYS THERAPY HERE FOR TEACHING REGARDING THERAPY TREATMENTS FOR THE DTR TO DO WITH PT AT HOME. WRITTEN & VERBAL DC INSTRUCTIONS GIVEN TO PT AND DTR, BOTH VERBALIZED GOOD UNDERSTANDING. PIV DC'D WITH CATH TIP INTACT, NO REDNESS OR SWELLING NOTED. NEW SCRIPTS WERE FAXED TO [facility] PER PT & DTR REQUEST. PT TO DTR'S PRIVATE VEHICLE VIA W/C WITH ALL PERSONAL BELONGINGS.
--- NOTE | 2022-07-09 18:06 | NUR ---
SHIFT SUMMARY A&O X 2 TO 3. IS CONFUSED & FORGETFUL AT TIMES. PT STATES SHE HAS NOT SLEPT FOR DAYS AND REQUESTED THE HALDOL WITH HER MORNING MEDS. SHE WAS ABLE TO SLEEP FOR ABOUT 3 1/2 HRS. MANY VISITORS IN AND OUT TODAY. PT WAS ABLE TO NAP THIS AFTERNOON WELL. SPEECH THERAPY IN TO SEE HER AND CLEARED HER TO EAT & DRINK. BILAT UPPER ARM POWER GLIDES INTACT & PATENT. BOTH FLUSH WELL AND DRAW. IVF's ARE INFUSING INTO L ARM PG.
--- NOTE | 2022-07-10 04:32 | NUR ---
SHIFT SUMMARY NO OVERNIGHT EVENTS. PT HAD A GOOD NIGHT. APPEARS MORE AWAKE AND ORIENTED. ORIENTED X3/4 WHEN DIRECTLY ASKED QUESTION,ALTHOUGH VERY FORGETFUL AND EASILY DISTRACTED. PT TOLERATED FLUIDS AND PUDDING WELL. NO NAUSEA. PT INCONTINENT OF URINE, PUREWICK PLACED AND WORKING WELL. FAMILY IN ROOM OVERNIGHT, NO IMPULSIVENESS NOTED. BP ELEVATED IN THE AM, ADMINISTERED PRN HYDRALYZINE. BED ALARM ON.
[2022-07-10 06:42] LABS: Bun/Creatinine Ratio 43.5 (12.0-20.0); Calcium, Blood 7.9 mg/dL (8.5-10.1); Creatinine, Blood 0.44 mg/dL (0.40-1.00); Potassium, Blood 3.4 mmol/L (3.5-5.5)
--- NOTE | 2022-07-10 18:31 | NUR ---
PATIENT APPEARS TO BE MORE ALERT AND ORIENTATED THIS SHFIT. IT IS HER BIRTHDAY. COMPANY HAS BEEN PRESENT ALL DAY. INSULIN WAS ADJUSTED TODAY, WITH 70/30 BEING ADDED TO THE MAR. PATIENT IS UP TO BSC, ASSIST OF 1. PT WALKED WITH PATIENT SHORT DISTANCE TODAY. KDUR WAS GIVEN K IS LOW. PATIENT APPEARS TO BE GAINING HEALTH.
--- NOTE | 2022-07-11 04:52 | NUR ---
SUMMARY: PATIENT DID WELL OVERNIGHT. AOX4. PATIENT WAS UP TO THE COMMODE 1X ASSIST WITH WALKER FOR A BOWEL MOVEMENT. PURE WIC IN PLACE JUST FOR NIGHT TIME. NO ACUTE EVENTS. VSS. IV ABX AND ANTIVIRALS GIVEN. PATIENT FAMILY AT BEDSIDE THROUGHOUT NIGHT. PLAN FOR DC TUESDAY.
[2022-07-11 05:05] LABS: BASOPHILS ABSOLUTE AUTO 0.01 K/mm3 (0.00-0.23); BASOPHILS PERCENT AUTO 0 % (0-2); EOSINOPHILS ABSOLUTE AUTO 0.11 K/mm3 (0.00-0.68); EOSINOPHILS PERCENT AUTO 1 % (0-6); Hematocrit 43.2 % (33.0-51.0); Hemoglobin 15.1 g/dL (11.5-16.0); IMMATURE GRAN ABSOLUTE AUTO 0.04 K/mm3 (0.00-0.10); IMMATURE GRAN PERCENT AUTO 1 % (0-1); LYMPHOCYTES ABSOLUTE AUTO 2.78 K/mm3 (0.84-5.20); LYMPHOCYTES PERCENT AUTO 32 % (21-46); MONOCYTES ABSOLUTE AUTO 0.64 K/mm3 (0.16-1.47); MONOCYTES PERCENT AUTO 7 % (4-13); Mean Corpuscular HGB 31.3 pg (26.0-34.0); Mean Corpuscular Volume 90 fL (80-100); Mean Platelet Volume 10.3 fL (9.1-12.4); NEUTROPHILS ABSOLUTE AUTO 5.21 K/mm3 (1.96-9.15); NEUTROPHILS PERCENT AUTO 59 % (41-73); Platelet Count 133 K/mm3 (150-400); RDW Coefficient Variation 11.9 % (11.7-14.2); RDW Standard Deviation 39.2 fL (35.1-46.3); Red Blood Cell Count 4.82 M/mm3 (3.80-5.20); White Blood Cell Count 8.79 K/mm3 (4.00-11.30)
[2022-07-11 05:56] LABS: Bun/Creatinine Ratio 36.9 (12.0-20.0); Calcium, Blood 8.6 mg/dL (8.5-10.1); Creatinine, Blood 0.49 mg/dL (0.40-1.00); Potassium, Blood 3.5 mmol/L (3.5-5.5)
--- NOTE | 2022-07-11 14:24 | NUR ---
PATIENT WOULD LIKE DIET ADVANCED. CALL TO PROVIDER AND REQUEST IS DELAYED UNTIL AFTER SPEECH REASSESSES PATIENT TOMORROW.
--- NOTE | 2022-07-11 17:53 | NUR ---
PATIETN ALERT AND ORIENTATED THIS SHIFT. CONFUSION NOT PRESENT. PATIENTS ABX, AVX ADMINISTERED PRESCRIBED. PATIENT HAD BM END OF SHIFT AND WAS EDUCATED ON WIPING FRONT TO BACK SHE WAS DOING THE OPPOSITE. PATIENT REPORTS BACK PAIN. TYLENOL PO ORDERED AND ADMINISTERED 2 X THIS SHIFT. FRIEND CAME AND CUT THE TANGLED HAIR FROM THE BACK OF THE PATIENTS HEAD. SHE IS WAITING FOR A NEW SPEECH EVAL SO SHE CAN HAVE AN ADVANCED DIET, SHE REFUSES TO EAT THE PUREE' AND REQUESTS YOGURT, PUDDING OR BROTH.
--- NOTE | 2022-07-12 04:29 | NUR ---
SUMMARY: PATIENT DID WELL OVERNIGHT. NO ACUTE EVENTS. VSS. AOX4 THROUGHOUT NIGHT. OUT OF BED MANY TIMES AMBULATING TO RESTROOM WITH WALKER. FAMILY AT BEDSIDE OVERNIGHT. IV ABX AND ANTIVIRALS GIVEN. CALL LIGHT IN REACH PATIENT CALLS APPROPRIATELY. BED ALARM ON. PATIENT WENT FOR A WALK OUT IN HALLWAY AND TOOK A SHOWER AROUND 4AM. WOULD LIKE TO TALK TO THE DOCTOR ABOUT HEMORRHOID CREAM IN THE MORNING. WROTE NOTE ON WHITE BOARD IN ROOM. WILL PASS MESSAGE ONTO DAY SHIFT NURSE.
[2022-07-12 05:19] LABS: Albumin, Blood 2.8 g/dL (3.4-5.0); Anion Gap 8 mmol/L (6-16); Blood Urea Nitrogen 19 mg/dL (8-24); Bun/Creatinine Ratio 33.6 (12.0-20.0); CO2, Blood 27 mmol/L (21-32); Calcium, Blood 8.7 mg/dL (8.5-10.1); Chloride, Blood 107 mmol/L (98-108); Creatinine, Blood 0.57 mg/dL (0.40-1.00); Glomerular Filtration Rate 97 (60-); Glucose, Blood 103 mg/dL (70-99); Phosphorus, Blood 3.5 mg/dL (2.5-4.9); Potassium, Blood 3.3 mmol/L (3.5-5.5); Sodium, Blood 142 mmol/L (136-145)
[2022-07-12 10:08] LABS: HSV-1 DNA Negative (Negative); HSV-2 DNA Negative (Negative)
--- NOTE | 2022-07-12 17:46 | NUR ---
SHIFT SUMMARY NO ACUTE CHANGES DURING SHIFT. PT ALERT AND ORIENTED, CALLS APPROPRIATELY. PT ON RA, SBA TO BATHROOM. PICC PLACED TO ELVI TODAY IN PREPARATION FOR D/C HOME WITH IV ABX THERAPY. MEDICATED WITH PRN TYLENOL TWICE DURING SHIFT. PT EVALUATED BY SPEECH, DIET ADVANCED TO REGULAR. CONTINUE TO MONITOR.CALL LIGHT WITHIN REACH
--- NOTE | 2022-07-13 05:25 | NUR ---
SUMMARY: PATIENT DID WELL OVERNIGHT. NO ACUTE EVENTS. VSS. AOX4 THROUGHOUT NIGHT. OUT OF BED MANY TIMES AMBULATING TO RESTROOM WITH WALKER. FAMILY AT BEDSIDE OVERNIGHT. IV ABX AND ANTIVIRALS GIVEN. CALL LIGHT IN REACH PATIENT CALLS APPROPRIATELY. PATIENT HAD A FEW LIQUID BOWEL MOVEMENTS OVERNIGHT, NOTIFIED RECIEVED ORDERS FOR IMODIUM. IMPROVED AFTER [address] LINE IN PL[address] DRAWS BACK FOR LABS.
[2022-07-13 06:15] LABS: Albumin, Blood 2.4 g/dL (3.4-5.0); Anion Gap 6 mmol/L (6-16); Blood Urea Nitrogen 13 mg/dL (8-24); Bun/Creatinine Ratio 21.8 (12.0-20.0); CO2, Blood 29 mmol/L (21-32); Calcium, Blood 8.5 mg/dL (8.5-10.1); Chloride, Blood 107 mmol/L (98-108); Glomerular Filtration Rate 96 (60-); Glucose, Blood 202 mg/dL (70-99); Phosphorus, Blood 3.7 mg/dL (2.5-4.9); Potassium, Blood 4.1 mmol/L (3.5-5.5); Sodium, Blood 142 mmol/L (136-145)
--- NOTE | 2022-07-13 16:52 | NUR ---
SHIFT SUMMARY NO ACUTE CHANGES DURING SHIFT. PT ALERT AND ORIENTED, CALLS APPROPRIATELY. FAMILY AT BEDSIDE. PT REMAINS ON RA, SBA IN ROOM TO BATHROOM. PICC TO ELVI. PLANS FOR D/C HOME TOMORROW. PRN TYLENOL ADMINISTERED TWICE DURING SHIFT. CONTINUE TO MONITOR. CALL LIGHT WITHIN REACH.
--- NOTE | 2022-07-14 04:43 | NUR ---
SUMMARY: PATIENT DID WELL OVERNIGHT. NO ACUTE EVENTS. VSS. AOX4 THROUGHOUT NIGHT. OUT OF BED MANY TIMES AMBULATING TO RESTROOM INDEPENDENTLY. WENT FOR A WALK AROUND UNIT. FAMILY AT BEDSIDE OVERNIGHT. IV ABX AND ANTIVIRALS GIVEN. CALL LIGHT IN REACH PATIENT CALLS APPROPRIATELY. PROVIDED EDUCATION WHEN GIVING MEDS THROUGH PICC ON HOW TO CLEAN AND FLUSH LINE AND APPLY CAPS.
[2022-07-14] MEDS ORDERED: Acetaminophen650 M1 PO (12:23)
[2022-07-14] MEDS ORDERED: BANATROL PLUS1 EAC1 PO (12:26)
[2022-07-14] MEDS ORDERED: ACYCLOVIR IV (12:26)
[2022-07-14] MEDS ORDERED: CEFTRIAXONE2 G1 IV (12:27)
[2022-07-14] MEDS ORDERED: Preparation H26 GM TOP (12:28)
[2022-07-14] MEDS ORDERED: VISBIOME 112.51 EACH PO (12:29)
--- NOTE | 2022-07-14 13:22 | NUR ---
DC HOME PT DC'D HOME TODAY WITH HH AND POWER PICC IN PLACE IN L UPPER ARM. INTACT & PATENT. FLUSHED WELL. HOME ANTI BIOTIC/ANTI VIRAL INFUSION HAS BEEN ARRANGED. PT'S & DTR HAVE BEEN TAUGHT BY HH/INFUSION HOW TO ADMINISTER INFUSIONS. WRITTEN & VERBAL DC INSTRUCTIONS GIVEN TO PT & PT'S , BOTH VERBALIZED GOOD UNDERSTANDING. POWER PICC REMAINS IN PT'S L UPPER ARM. NEW SCRIPTS WERE FAXED TO PT'S PREFERRED PHARM. IV INFUSION MEDS HAVE BEEN SHIPPED & STATES THEY HAVE BEEN DELIVERED. PT HOME VIA W/C WITH ALL PERSONAL BELONGINGS TO PRIVATE VEHICLE.
== END 2022-07-14 13:07 | disposition home health service (06) | DRG 871 ==
LOC: ER 18:57 → ERHOLD 23:46 → MEDS 23:46
PROVIDERS: Emergency Medicine; Family Medicine; Internal Medicine; Physician Assistant; Student in an Organized Health Care Education/Training Program; ADMIT Internal Medicine
PROC: 3E03329 Introduction of Other Anti-infective into Peripheral Vein, Percutaneous Approach (ICD-10-PCS; principal; 2022-07-04)
PROC: 009U3ZX Drainage of Spinal Canal, Percutaneous Approach, Diagnostic (ICD-10-PCS; 2022-07-05)
PROC: 02HV33Z Insertion of Infusion Device into Superior Vena Cava, Percutaneous Approach (ICD-10-PCS; 2022-07-12)
DX: A41.51 Sepsis due to Escherichia coli [E. coli] (principal); E11.10 Type 2 diabetes mellitus with ketoacidosis without coma; G92.8 Other toxic encephalopathy; G04.90 Encephalitis and encephalomyelitis, unspecified; N39.0 Urinary tract infection, site not specified; I67.89 Other cerebrovascular disease; R65.20 Severe sepsis without septic shock; I10 Essential (primary) hypertension; I25.10 Atherosclerotic heart disease of native coronary artery without angina pectoris; E11.51 Type 2 diabetes mellitus with diabetic peripheral angiopathy without gangrene; R13.10 Dysphagia, unspecified; G43.909 Migraine, unspecified, not intractable, without status migrainosus; R53.81 Other malaise; E87.6 Hypokalemia; Z20.822 Contact with and (suspected) exposure to COVID-19; Z88.8 Allergy status to other drugs, medicaments and biological substances; Z88.2 Allergy status to sulfonamides; Z91.018 Allergy to other foods; Z91.038 Other insect allergy status; Z79.899 Other long term (current) drug therapy; Z79.4 Long term (current) use of insulin; Z79.82 Long term (current) use of aspirin; Z79.84 Long term (current) use of oral hypoglycemic drugs; Z79.811 Long term (current) use of aromatase inhibitors; Z95.5 Presence of coronary angioplasty implant and graft; Z98.51 Tubal ligation status; Z98.890 Other specified postprocedural states; Z90.710 Acquired absence of both cervix and uterus; Z98.49 Cataract extraction status, unspecified eye; Z95.828 Presence of other vascular implants and grafts; Z87.891 Personal history of nicotine dependence
CPT/HCPCS: 0241U; 36415; 36569; 51702; 51798; 70450; 70551; 71260; 80048; 80053; 80069; 80202; 81001; 82010; 82140; 82945; 82947; 83605; 83735; 84100; 84145; 84157; 85014; 85018; 85025; 85027; 85379; 85610; 85651; 85730; 86140; 86618; 87070; 87077; 87086; 87186; 87205; 87252; 87254; 87483; 87529; 89051; 92526; 92610; 94660; 94762; 96372-59; 96374-59; 96375-59; 96376-59; 97112; 97116; 97162; 97166; 97530; 97535; 99285-25; A9270; C1751; C9113; G0480; J0133; J0290; J0360; J0696; J1450; J1630; J1650; J1815; J1885; J2060; J2405; J2765; J2920; J2930; J3010; J3370; J3480; J7030; J7050; J7060; J7120; P9612; Q9967

== ENCOUNTER 2022-07-21 11:32 | Day surgery (SDC) | payer MEDICARE, BC ==
[~2022-07-21 11:32] MED LIST changes: +ACYCLOVIR IV; +Acetaminophen650 M1 PO; +BANATROL PLUS1 EAC1 PO; +CEFTRIAXONE2 G1 IV; +FARXIGA10 MG PO; +Isosorbide Mono30 MG PO; +Oxybutynin Chlor5 M1 PO; +PEPCID40 MG PO; +Preparation H26 GM TOP; +VISBIOME 112.51 EACH PO
[2022-07-21 13:10] LABS: BASOPHILS ABSOLUTE AUTO 0.09 K/mm3 (0.00-0.23); BASOPHILS PERCENT AUTO 1 % (0-2); EOSINOPHILS ABSOLUTE AUTO 0.27 K/mm3 (0.00-0.68); EOSINOPHILS PERCENT AUTO 3 % (0-6); Hematocrit 36.5 % (33.0-51.0); Hemoglobin 12.4 g/dL (11.5-16.0); IMMATURE GRAN ABSOLUTE AUTO 0.06 K/mm3 (0.00-0.10); IMMATURE GRAN PERCENT AUTO 1 % (0-1); LYMPHOCYTES ABSOLUTE AUTO 2.42 K/mm3 (0.84-5.20); LYMPHOCYTES PERCENT AUTO 30 % (21-46); MONOCYTES ABSOLUTE AUTO 0.54 K/mm3 (0.16-1.47); MONOCYTES PERCENT AUTO 7 % (4-13); Mean Corpuscular HGB 31.5 pg (26.0-34.0); Mean Corpuscular Volume 93 fL (80-100); Mean Platelet Volume 9.6 fL (9.1-12.4); NEUTROPHILS PERCENT AUTO 58 % (41-73); Platelet Count 300 K/mm3 (150-400); RDW Coefficient Variation 13.5 % (11.7-14.2); Red Blood Cell Count 3.94 M/mm3 (3.80-5.20); White Blood Cell Count 7.98 K/mm3 (4.00-11.30)
[2022-07-21 13:24] LABS: Albumin, Blood 3.2 g/dL (3.4-5.0); Albumin/Globulin Ratio 0.9 (0.8-1.8); Bilirubin, Total 0.3 mg/dL (0.1-1.0); Bun/Creatinine Ratio 21.7 (12.0-20.0); Calcium, Blood 9.2 mg/dL (8.5-10.1); Creatinine, Blood 0.69 mg/dL (0.40-1.00); Globulin, Blood 3.6 g/dL (2.2-4.0); Potassium, Blood 3.5 mmol/L (3.5-5.5); Total Protein, Blood 6.8 g/dL (6.4-8.2)
== END 2022-07-21 12:23 | disposition home or self-care (01) ==
LOC: ATC 11:32
PROVIDERS: Internal Medicine
DX: G92.8 Other toxic encephalopathy (principal); N39.0 Urinary tract infection, site not specified; B96.20 Unspecified Escherichia coli [E. coli] as the cause of diseases classified elsewhere; I73.9 Peripheral vascular disease, unspecified; E11.51 Type 2 diabetes mellitus with diabetic peripheral angiopathy without gangrene; Z88.2 Allergy status to sulfonamides; Z88.8 Allergy status to other drugs, medicaments and biological substances; I10 Essential (primary) hypertension
CPT/HCPCS: 36592; 80053; 85025

== ENCOUNTER 2022-07-28 01:19 | Day surgery (SDC) | payer MEDICARE, BC ==
[2022-07-28 12:15] LABS: Hematocrit 39.9 % (33.0-51.0); Hemoglobin 13.7 g/dL (11.5-16.0); Mean Corpuscular HGB 31.6 pg (26.0-34.0); Mean Corpuscular HGB Conc 34.3 g/dL (31.5-36.5); Mean Corpuscular Volume 92 fL (80-100); Mean Platelet Volume 9.8 fL (9.1-12.4); Platelet Count 248 K/mm3 (150-400); RDW Coefficient Variation 15.2 % (11.7-14.2); RDW Standard Deviation 49.4 fL (35.1-46.3); Red Blood Cell Count 4.33 M/mm3 (3.80-5.20); White Blood Cell Count 6.33 K/mm3 (4.00-11.30)
[2022-07-28 12:23] LABS: Albumin, Blood 3.6 g/dL (3.4-5.0); Bilirubin, Total 1.3 mg/dL (0.1-1.0); Bun/Creatinine Ratio 12.8 (12.0-20.0); Calcium, Blood 9.5 mg/dL (8.5-10.1); Creatinine, Blood 0.63 mg/dL (0.40-1.00); Globulin, Blood 3.6 g/dL (2.2-4.0); Potassium, Blood 3.6 mmol/L (3.5-5.5); Total Protein, Blood 7.2 g/dL (6.4-8.2)
[2022-07-28 12:41] LABS: BASOPHILS ABSOLUTE MAN 0.06 K/mm3 (0.00-0.23); BASOPHILS PERCENT MAN 1 % (0-2); EOSINOPHILS ABSOLUTE MAN 0.18 K/mm3 (0.00-0.68); EOSINOPHILS PERCENT MAN 3 % (0-6); LYMPHOCYTES ABSOLUTE MAN 1.51 K/mm3 (0.84-5.20); LYMPHOCYTES PERCENT MAN 24 % (21-46); MONOCYTES ABSOLUTE MAN 0.12 K/mm3 (0.16-1.47); MONOCYTES PERCENT MAN 2 % (4-13); NEUTROPHILS ABSOLUTE MAN 4.43 K/mm3 (1.96-9.15); SEG NEUTROPHILS PERCENT MAN 70 % (41-73); TOTAL CELLS COUNTED 100
--- NOTE | 2022-07-28 12:56 | NUR ---
Lab results from today faxed to [facility] per order.
== END 2022-07-28 10:55 | disposition home or self-care (01) ==
LOC: ATC 01:19
PROVIDERS: Internal Medicine
DX: G92.8 Other toxic encephalopathy (principal); E11.10 Type 2 diabetes mellitus with ketoacidosis without coma; I10 Essential (primary) hypertension; I25.10 Atherosclerotic heart disease of native coronary artery without angina pectoris; E11.51 Type 2 diabetes mellitus with diabetic peripheral angiopathy without gangrene; Z79.82 Long term (current) use of aspirin; Z79.4 Long term (current) use of insulin; Z88.2 Allergy status to sulfonamides; Z91.018 Allergy to other foods; N39.0 Urinary tract infection, site not specified
CPT/HCPCS: 36592; 80053; 85007; 85027

== ENCOUNTER → 2022-08-21 | Outpatient (CLI) | payer MEDICARE, BC ==
[2022-08-24 10:25] LABS: C DIFFICILE DNA POSITIVE (Negative)
== END | disposition home or self-care (01) ==
LOC: LAB SHORT 15:25 → LAB 15:25
PROVIDERS: Hospitalist
DX: R19.7 Diarrhea, unspecified (principal)
CPT/HCPCS: 87324; 87493

== ENCOUNTER → 2023-02-16 | Outpatient (CLI) | payer MEDICARE, BC ==
[2023-02-16 15:35] LABS: BASOPHILS ABSOLUTE AUTO 0.06 K/mm3 (0.00-0.23); BASOPHILS PERCENT AUTO 1 % (0-2); EOSINOPHILS PERCENT AUTO 8 % (0-6); Hematocrit 39.1 % (33.0-51.0); Hemoglobin 13.9 g/dL (11.5-16.0); IMMATURE GRAN ABSOLUTE AUTO 0.04 K/mm3 (0.00-0.10); IMMATURE GRAN PERCENT AUTO 1 % (0-1); LYMPHOCYTES PERCENT AUTO 41 % (21-46); MONOCYTES PERCENT AUTO 7 % (4-13); Mean Corpuscular HGB 31.3 pg (26.0-34.0); Mean Corpuscular HGB Conc 35.5 g/dL (31.5-36.5); Mean Corpuscular Volume 88 fL (80-100); Mean Platelet Volume 10.2 fL (9.1-12.4); NEUTROPHILS ABSOLUTE AUTO 3.13 K/mm3 (1.96-9.15); NEUTROPHILS PERCENT AUTO 43 % (41-73); Platelet Count 253 K/mm3 (150-400); RDW Coefficient Variation 12.7 % (11.7-14.2); RDW Standard Deviation 41.2 fL (35.1-46.3); Red Blood Cell Count 4.44 M/mm3 (3.80-5.20); White Blood Cell Count 7.33 K/mm3 (4.00-11.30)
== END | disposition home or self-care (01) ==
LOC: LAB SHORT 14:35 → LAB 14:35
PROVIDERS: Hospitalist
DX: K92.1 Melena (principal)
CPT/HCPCS: 85025

== ENCOUNTER → 2023-05-19 | Outpatient (CLI) | payer MEDICARE, BC | END | disposition home or self-care (01) | LOC: LAB SHORT 14:00 → LAB 14:00 | DX: N39.41 Urge incontinence (principal) | CPT/HCPCS: 87077; 87086; 87186 ==

== ENCOUNTER 2023-07-10 23:44 | Emergency (ER) | payer MEDICARE, BC ==
[~2023-07-10] VITALS: Ht 167.6 cm; Wt 90.7 kg
[2023-07-11 02:52] VITALS: BP 133/95
== END 2023-07-11 02:51 | disposition home or self-care (01) ==
LOC: ER 23:44
DX: T38.3X1A Poisoning by insulin and oral hypoglycemic [antidiabetic] drugs, accidental (unintentional), initial encounter (principal); E11.9 Type 2 diabetes mellitus without complications; I10 Essential (primary) hypertension; E78.5 Hyperlipidemia, unspecified; Z79.4 Long term (current) use of insulin; Z79.84 Long term (current) use of oral hypoglycemic drugs; Z79.82 Long term (current) use of aspirin; Z79.899 Other long term (current) drug therapy; Z87.891 Personal history of nicotine dependence; Z91.018 Allergy to other foods; Z91.030 Bee allergy status; Z88.2 Allergy status to sulfonamides; Z88.8 Allergy status to other drugs, medicaments and biological substances
CPT/HCPCS: 82947; 99284

== ENCOUNTER → 2023-07-27 | Outpatient (CLI) | payer MEDICARE, BC ==
[2023-07-27 16:02] LABS: Candida species (DNA Probe) Positive (NEGATIVE); G. vaginalis (DNA Probe) Negative (NEGATIVE); T. vaginalis (DNA Probe) Negative (NEGATIVE)
== END ==
LOC: LAB SHORT 12:10 → LAB 12:10
PROVIDERS: Advanced Practice Midwife
DX: N76.0 Acute vaginitis (principal)
CPT/HCPCS: 87480; 87510; 87660

== ENCOUNTER → 2023-11-18 | Outpatient (CLI) | payer MEDICARE ==
[2023-11-18 15:32] LABS: Alanine Aminotransfer (ALT/SGP 28 U/L (12-78); Albumin, Blood 4.2 g/dL (3.4-5.0); Albumin/Globulin Ratio 1.2 (0.8-1.8); Alk Phos 71 U/L (50-136); Anion Gap 11 mmol/L (3-11); Aspartate Aminotrans (AST/SGOT 18 U/L (12-37); Bilirubin, Total 0.6 mg/dL (0.1-1.0); Blood Urea Nitrogen 25 mg/dL (8-24); Bun/Creatinine Ratio 34.5 (12.0-20.0); CHOL/HDL RATIO 3.7; CO2, Blood 27 mmol/L (21-32); Chloride, Blood 105 mmol/L (98-108); Cholesterol 146 mg/dL (50-200); Creatinine, Blood 0.73 mg/dL (0.40-1.00); Globulin, Blood 3.4 g/dL (2.2-4.0); Glomerular Filtration Rate 87 (60-); Glucose, Blood 146 mg/dL (70-99); HDL Cholesterol 39 mg/dL (>39); Low Density Lipoprotein Chol 79 mg/dL (0-110); Potassium, Blood 4.4 mmol/L (3.5-5.5); Sodium, Blood 139 mmol/L (136-145); Total Protein, Blood 7.6 g/dL (6.4-8.2); Triglycerides 140 mg/dL (30-160); Very Low Density Lipoprot Chol 28 mg/dL (6-32)
[2023-11-18 15:41] LABS: Creatinine, Urine Random 67.8 mg/dL (27.00-270.00); Microalb/Creat Ratio UR, Rand 16.372 mg/g (0.000-30.000); Microalbumin, Random Urine 11.1 mg/L (0.000-20.000)
== END | disposition home or self-care (01) ==
LOC: LAB 14:26 → LAB SHORT 14:26
PROVIDERS: Hospitalist
DX: E11.69 Type 2 diabetes mellitus with other specified complication (principal); E78.5 Hyperlipidemia, unspecified
CPT/HCPCS: 80053; 80061; 82043; 82570; 83036

== ENCOUNTER → 2025-05-25 | Outpatient (CLI) | payer MEDICARE, BC, OTHER ==
[~2025-05-25] MED LIST changes: +CEFD300 PO
[2025-05-27 17:10] LABS: Campylobacter Sp Not Detected (NOT DETECT)
[2025-05-27 17:11] LABS: E. Coli O157 Not Detected (NOT DETECT); Enteroaggregative E. coli-EAEC Not Detected (NOT DETECT); Enteropathogenic E. coli-EPEC Not Detected (NOT DETECT); Enterotoxigenic E. coli-ETEC Not Detected (NOT DETECT); Salmonella Sp Not Detected (NOT DETECT); Shiga Toxin-prod E. coli-STEC Not Detected (NOT DETECT); Shigella/Enteroin E. coli-EIEC Not Detected (NOT DETECT); Vibrio Sp Not Detected (NOT DETECT)
[2025-05-29 14:58] LABS: PANCREATIC ELASTASE,FECAL >800 ug/g (>=100)
[2025-05-29 19:13] LABS: CALPROTECTIN,FECAL 98 ug/g (<=49)
== END ==
LOC: LAB 03:35 → LAB SHORT 03:35
PROVIDERS: Family Medicine
DX: K52.9 Noninfective gastroenteritis and colitis, unspecified (principal)
CPT/HCPCS: 87324; 87507

== ENCOUNTER → 2025-05-28 | Outpatient (CLI) | payer MEDICARE, BC, OTHER | LOC: LAB SHORT 19:26 → LAB 19:26 | DX: N39.0 Urinary tract infection, site not specified (principal) | CPT/HCPCS: 87077; 87086; 87186 ==

== ENCOUNTER → 2025-06-18 | Outpatient (CLI) | payer MEDICARE, BC, OTHER ==
[2025-06-18 16:18] LABS: C DIFFICILE DNA NEGATIVE (Negative)
== END | disposition home or self-care (01) ==
LOC: LAB 12:00 → LAB SHORT 12:00
PROVIDERS: Family Medicine
DX: A04.72 Enterocolitis due to Clostridium difficile, not specified as recurrent (principal)
CPT/HCPCS: 87493